=== PATIENT | male | born 1970 | race Caucasian/White ===

== ENCOUNTER 2022-10-28 11:19 | Emergency (ER) | payer OTHER, SELFPAY ==
--- NOTE | ~2022-10-28 | XR_ITS ---
EXAMINATION: XR chest 2V DATE: 10/28/2022 12:42 INDICATION: Cough, shortness of breath, and fever. TECHNIQUE: Frontal and lateral views of the chest were obtained. COMPARISON: Chest 2 views 04/10/2014 FINDINGS: There are airspace opacities in left lower lung zone. No pleural effusion or pneumothorax. The heart size is normal. Calcified hilar and mediastinal lymph nodes are consistent with old granulo matous disease. IMPRESSION: 1. Airspace opacities in left lower lung zone, consistent with atelectasis versus pneumonia. Reviewed, dictated and finalized at location A. AL PERSON IMPRESSION: 1. Airspace opacities in left lower lung zone, consistent with atelectasis vers us pneumonia.
[2022-10-28 12:24] VITALS: BP 145/89; PULSE 92; RESP 16; TEMP 38.8; O2SAT 98
--- NOTE | 2022-10-28 13:18 | ED.URI ---
HPI - URI/Sore Throat General Chief Complaint: Upper Respiratory Infection Stated Complaint: fever,cough,tested covid + weeks ago Source: patient Mode of arrival: ambulatory Limitations: no limitations History of Present Illness HPI Narrative: 51-year-old male presented for complaint of cough and fever worsening over last 5 days. He endorses sob with exertion, chest congestion and cough is productive yellow sputum. He states he had Covid about 3 weeks ago and symptoms had resolved. He is taking decongestant for symptoms. He denies wheezing nausea, vomiting or diarrhea.. Related Data Home Medications Medication Instructions Recorded Confirmed escitalopram oxalate 10 mg tablet 10 mg PO DAILY 10/28/22 10/28/22 olmesartan 20 mg tablet 20 mg PO DAILY 10/28/22 10/28/22 propranolol 80 mg capsule,24 80 mg PO DAILY 10/28/22 10/28/22 hr,extended release rosuvastatin 10 mg tablet 10 mg PO DAILY 10/28/22 10/28/22 Allergies Allergy/AdvReac Type Severity Reaction Status Date / Time NKDA Allergy Unknown Other Uncoded 10/28/22 12:29 Review of Systems Review of Systems: per HPI All systems reviewed & are unremarkable except as noted in HPI and below PMFSH Family History Family History Father Hypertension Comments At time of signature, I have reviewed and agree with nursing past medical, surgical, social and family history unless otherwise noted. Please see nursing chart for further information. There is no relevant family history pertinent to the presenting complaint Exam Narrative: GENERAL: ill-appearing, nontoxic EYES: EOMI. No redness or drainage. Conjunctivae normal. ENT: Mucous membranes pink and moist. No rhinorrhea. TMs normal bilaterally. Throat normal. Uvula midline. NECK: Normal AROM. Supple. CHEST: No respiratory distress. LCTAB HEART: Regular rate and rhythm. No murmur appreciated. ABDOMEN: Soft, nontender, nondistended, normal active bowel sounds. EXTREMITIES: Normal range of motion. No edema. SKIN: Warm, dry, no rash. Capillary refill normal. Normal skin turgor. NEURO: Alert and oriented x3. Gait steady. PSYCH: Normal affect. Course Course Emergency Course: Patient is aware of diagnosis, understands and agrees to treatment plan. Anticipatory guidance given. Patient agrees to follow-up as directed and is aware of reasons to seek care at the emergency department. Portions of this record may have been created with voice recognition software Level of Care: Express Care Visit Vital Signs Vital signs: Vital Signs Temperature 102 F H 10/28/22 12:24 Pulse Rate 92 10/28/22 12:24 Respiratory Rate 16 10/28/22 12:24 Blood Pressure 145/89 H 10/28/22 12:24 Pulse Oximetry 98 10/28/22 12:24 Temperature 102 F H 10/28/22 12:24 Pulse Rate 92 10/28/22 12:24 Respiratory Rate 16 10/28/22 12:24 Blood Pressure 145/89 H 10/28/22 12:24 Pulse Oximetry 98 10/28/22 12:24 MDM - URI/Sore Throat MDM Narrative Medical decision making narrative: Flu negative. Results chest x-ray reviewed with patient. Advised supportive measures and signs/symptoms to go to the ER. Pt is appropriate for outpt treatment and f/u. Differential Diagnosis Differential diagnosis: Likely upper respiratory infection, viral infection, bronchitis and influenza Lab Data Labs: Influenza A Screen Negative Reference Range: Negative Influenza B Screen Negative Reference Range: Negative Imaging Data Radiologist's impression: Patient: Deshaun Iglesias : 1970 MR#: [id number] Age/Sex: 51 / M Acct:[id number] Loc: [facility]? ? ADM Date: 10/28/22Attending Dr: Ordering Physician: Adriana Adkins APRN Date of Service: 10/28/22 Procedure(s): XR chest 2V Accession Number(s): [id number] cc: Jeana
== END 2022-10-28 13:30 | disposition home or self-care (01) ==
PROVIDERS: Emergency Provider Nurse Practitioner Family; PCP Internal Medicine
DX: R05.9 Cough, unspecified (principal); Z86.16 Personal history of COVID-19
CPT/HCPCS: 71046; 87804; 99203; G0463